=== PATIENT | female | born 1990 | race Caucasian/White ===

== ENCOUNTER 2018-12-29 13:40 | Inpatient (IN) ==
--- NOTE | 2018-12-29 14:39 | Emergency Department Note ---
ED Provider Note CHIEF COMPLAINT: Right wrist injury 5 days ago, increased swelling and bloody drainage today HISTORY OF PRESENT ILLNESS: Patient is a right-hand dominant 28-year-old female who presents the emergency department for redness, pain and swelling on her right wrist. 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 She states that she slipped and fell on her outstretched right arm behind her while working about 5 days ago. She states that it was painful and swollen, so she went to [facility] the following day and had x-rays performed which were negative. Patient states that she has wrapped it with an Chris wrap, applied ice, and alternated ibuprofen and Aleve, bu t the pain and swelling have become worse. She states that she noticed that it became more "fluid-filled" in the last couple of days, and this morning she states that she noticed bloody drainage from the swelling on the wrist. She states that she did have a small brenton or cut on that area from broken glass at work prior to the fall. The patient denies any fever, chills, nausea, vomiting or malaise. She rates her discomfort a 7/10. The patient denies any personal history of skin infections or abscesses. She does have history of contact with people with MRSA. Patient does admit to IV drug use, she abuses heroin. She went to rehab and has been clean times 2 weeks, but does admit that she has injected in this area, last was probably about 2 weeks ago. REVIEW OF SYSTEMS: Review of systems as per HPI. All other systems reviewed were negative. 10 systems reviewed. PMH: Electronic medical records are reviewed and summarized as above/below. See Problem List. SOCIAL HISTORY: Patient lives at home. Works as a business management manager. Smoker. Heroin abuse. PHYSICAL EXAM: Vital Signs: Reviewed Nurse's notes. CONSTITUTIONAL: Patient is a well-appearing 28-year-old female who is awake and alert and in no acute distress. Vital signs are stable and she is afebrile. HEART: Regular rate and rhythm. No murmur appreciated. LUNGS: Clear to auscultation. INTEGUMENTARY: Examination of the right wrist, dorsal radial aspect, note a large, fluctuant, tender area of soft tissue swelling with increased warmth and surrounding erythema. There is pointing, and bloody drainage noted. There is additional soft tissue swelling into the dorsum of the hand. There is no lymphangitic streaking proximally. MUSCULOSKELETAL: Swelling as noted above. Wrist is tender to palpation, she can flex and extend but it is painful. There is no pain at the base of the thumb. Finger range of motion is full. The right upper extremity is neurovascularly intact. EMERGENCY DEPARTMENT COURSE: The patient was seen and assessed as above. She has no old records at this facility for review. She presents to the emergency department for evaluation of a painful fluctuant swelling on the right wrist, in the setting of a history of IV drug use, and a fall about 5 days ago. IV lock was initiated. Laboratory studies were collected including CBC with differential, CMP, sed rate, CRP and blood cultures x2. X-rays of the right wrist were obtained. Patient was reviewed with attending physician. CT scan of the upper extremity with IV contrast was ordered. Patient was given vancomycin and Zosyn empirically. Patient's laboratory studies revealed a normal white count at 10,300. Sed rate elevated at 69. Chemistries are unremarkable. CRP elevated at 11. Lactic acid is normal. Blood cultures x2 are pending. Her urine hCG was positive. Positive urine test was discussed with the patient. She reports that she has an IUD in place. She had a menstrual period 1 week ago. She reports that she was last sexually active 7 or 8 weeks ago. Quantitative hCG is less than 1. X-ray of the right wrist noted soft tissue swelling, but no acute bony pathology. CT scan of the right forearm noted a 4 x 3 x 6 cm fluid collection in the lateral right wrist compatible with an abscess. There is associated tenosynovitis in the first and second extensor cart mittens, and superficial venous thrombus in the distal cephalic vein. There is no intramuscular fluid collection or deep tissue air. All laboratory and diagnostic imaging imaging studies were reviewed with Dr. Morales. I did speak with Dr. Aguilar orthopedic surgeon on-call regarding the patient and her ED workup. He asked for medical admission, with plans to take the patient to the operating room tomorrow. I was able to speak with Dr. Zimmerman with the [facility], and they have agreed to see the patient. Differential diagnoses included abscess, cellulitis, DVT, superficial thrombophlebitis, septic hematoma, necrotizing fasciitis, infectious tenosynovitis, osteomyelitis, among others. Impression & Plan Abscess of arm, right Past Med/Surg History Medical History IVDU (intravenous drug user) (Chronic) Heroin abuse (Chronic) History of pyloric stenosis (Resolved) Kidney stones (Chronic) Surgical History History of cystoscopy (Resolved) Social History Preferred Language: Occitan current occupational status: employed Feels Safe at Home: Yes Smoking Status: Current every day smoker Hx Substance Use: Yes Results & Data Vital Signs Vital Signs - 24 hr 12/29/18 13:47 Temperature 36.7 C Temperature Source Oral Sepsis Recent Fever Within 48 Hours No Sepsis New/Unexplained Change in Mental Status No Sepsis Action Taken by Nursing No Action Required Pulse Rate 75 Respiratory Rate 16 Blood Pressure 113/73 Blood Pressure Mean 86 Pulse Oximetry 99 Home Medications Current Medication List: was personally reviewed by me Laboratory Data Attestation: I reviewed the patient's lab results. Result diagrams: 12/29/18 14:46 12/29/18 14:46 Lab Results 12/29/18 12/29/18 12/29/18 Range/Units 14:46 14:46 14:46 WBC 10.34 (4.8-10.8) K/uL RBC 4.45 (4.2-5.4) M/uL Hgb 13.2 (12.0-16.0) g/dL Hct 39.6 (37-47) % MCV 89.0 (80-100) fL MCH 29.7 (25-34) pg MCHC 33.3 (32-36) g/dL RDW Std Deviation 44.9 (36.4-46.3) fL RDW Coeff of Harriet 13.7 (11.5-14.5) % Plt Count 273 (130-400) K/uL MPV 11.3 H (7.4-10.4) fL Immature Gran % (Auto) 0.3 % Neut % (Auto) 69.2 % Lymph % (Auto) 22.1 % [place] % (Auto) 4.9 % Eos % (Auto) 3.0 % Baso % (Auto) 0.5 % Immature Gran # (Auto) 0.03 H (0.00-0.02) K/uL Neut # (Auto) 7.16 H (1.4-6.5) K/uL Lymph # (Auto) 2.28 (1.2-3.4) K/uL [place] # (Auto) 0.51 (0.11-0.59) K/uL Eos # (Auto) 0.31 (0-0.5) K/uL Baso # (Auto) 0.05 (0-0.2) K/uL ESR 69 H (0-21) mm/hr Sodium 134 L (136-145) mmol/L Potassium 3.9 (3.5-5.1) mmol/L Chloride 102 (98-107) mmol/L Carbon Dioxide 27 (21-32) mmol/L Anion Gap 5.0 (3-11) BUN 13 (7-18) mg/dl Creatinine 0.71 (0.6-1.2) mg/dl Est Cr Clr Drug Dosing 121.1 ml/min Est GFR ( Amer) 136.2 Est GFR (Non-Af Amer) 117.6 BUN/Creatinine Ratio 18.4 (10-20) Glucose 81 (70-99) mg/dl POC Lactic Acid Jefferson (0.90-1.70) mmol/L Calcium 9.5 (8.5-10.1) mg/dl Total Bilirubin 0.5 (0.2-1) mg/dl AST 30 (15-37) U/L ALT 46 (12-78) U/L Alkaline Phosphatase 119 H (45-117) U/L C-Reactive Protein 11.40 H (0-0.29) mg/dl Total Protein 9.0 H (6.4-8.2) gm/dl Albumin 4.1 (3.4-5.0) gm/dl Globulin 4.9 H (2.5-4.0) gm/dl Albumin/Globulin Ratio 0.8 L (0.9-2) HCG, Qual (Negative) HCG, Quant mIU/ml 12/29/18 12/29/18 12/29/18 Range/Units 14:46 14:46 14:48 WBC (4.8-10.8) K/uL RBC (4.2-5.4) M/uL Hgb (12.0-16.0) g/dL Hct (37-47) % MCV (80-100) fL MCH (25-34) pg MCHC (32-36) g/dL RDW Std Deviation (36.4-46.3) fL RDW Coeff of Harriet (11.5-14.5) % Plt Count (130-400) K/uL MPV (7.4-10.4) fL Immature Gran % (Auto) % Neut % (Auto) % Lymph % (Auto) % [place] % (Auto) % Eos % (Auto) % Baso % (Auto) % Immature Gran # (Auto) (0.00-0.02) K/uL Neut # (Auto) (1.4-6.5) K/uL Lymph # (Auto) (1.2-3.4) K/uL [place] # (Auto) (0.11-0.59) K/uL Eos # (Auto) (0-0.5) K/uL Baso # (Auto) (0-0.2) K/uL ESR (0-21) mm/hr Sodium (136-145) mmol/L Potassium (3.5-5.1) mmol/L Chloride (98-107) mmol/L Carbon Dioxide (21-32) mmol/L Anion Gap (3-11) BUN (7-18) mg/dl Creatinine (0.6-1.2) mg/dl Est Cr Clr Drug Dosing ml/min Est GFR ( Amer) Est GFR (Non-Af Amer) BUN/Creatinine Ratio (10-20) Glucose (70-99) mg/dl POC Lactic Acid Jefferson 0.75 L (0.90-1.70) mmol/L Calcium (8.5-10.1) mg/dl Total Bilirubin (0.2-1) mg/dl AST (15-37) U/L ALT (12-78) U/L Alkaline Phosphatase (45-117) U/L C-Reactive Protein (0-0.29) mg/dl Total Protein (6.4-8.2) gm/dl Albumin (3.4-5.0) gm/dl Globulin (2.5-4.0) gm/dl Albumin/Globulin Ratio (0.9-2) HCG, Qual Positive (Negative) HCG, Quant < 1 mIU/ml Administered Medications Vancomycin HCl 1,750 mg/ (Sodium Chloride) 535 mls @ 200 mls/hr IV NOW ONE Stop: 12/29/18 17:43 Last Admin: 12/29/18 16:44 Dose: 200 mls/hr Documented by: [id number] Ioversol (Optiray 320 100ml) 70 ml IV ONCE PRN PRN Reason: Interaction Checking Stop: 01/02/19 16:01 Last Admin: 12/29/18 16:03 Dose: 70 ml Documented by: [id number] Discontinued Medications Piperacillin Sod/Tazobactam Sod (Zosyn) 4.5 gm in 120 mls @ 240 mls/hr IV NOW ONE Stop: 12/29/18 15:32 Last Infusion: 12/29/18 16:44 Dose: 0 mls/hr Documented by: [id number] Admin: 12/29/18 16:13 Dose: 240 mls/hr Documented by: [id number] Ketorolac Tromethamine (Toradol) 30 mg IV NOW STA Stop: 12/29/18 16:26 Last Admin: 12/29/18 16:44 Dose: 30 mg Documented by: [id number] Imaging Data Attestation: I personally reviewed and interpreted this imaging study as follows: Radiologist's Impression: CT forearm RT w con HISTORY: 28 years-old Female EVAL ABSCESS, necrotizing fasciitis acute pain and swelling of the right wrist with concern for necrotizing fasciitis COMPARISON: Right wrist radiographs of same day TECHNIQUE: Multiple axial CT images of the right forearm were obtained following the intravenous administration of 164 mL Optiray 320 IV contrast. A dose lowering technique was used consistent with the principals of DEANN.. FINDINGS: No acute fracture, dislocation or significant degenerative changes. Bone mineralization appears to be within normal limits. No opaque foreign body identified. There is moderate subcutaneous and deep tissue edema about the distal forearm, hand and wrist which is most pronounced dorsolaterally in the subcutaneous tissues. Peripherally enhancing fluid collection is noted about the lateral wrist which demonstrates mild multiloculation measuring 3.9 x 2.9 x 5.9 cm. Moderate associated tenosynovitis about the first and second extensor compartments. Additionally, there is thrombosis about distal cephalic vein within this distribution on image 106 series 4. No intramuscular fluid collection. No deep tissue air. IMPRESSION: 1. Peripherally enhancing subcutaneous fluid collection about the lateral wrist measures up to 3.9 x 2.9 x 5.9 cm compatible with abscess. Moderate associated cellulitis changes. 2. Superficial venous thrombosis about the distal cephalic vein. 3. Tenosynovitis about the first and second extensor compartments, likely infectious or inflammatory. 4. No acute fracture or dislocation. XR wrist RT min 3V routine CLINICAL HISTORY: ABSCESS R WRIST pain COMPARISON: None. DISCUSSION: The bones and joint spaces appear intact. There is no evidence of fracture, dislocation or bony disease. Considerable soft tissue edema dorsal and lateral to the wrist. No well-defined acute bony abnormality. IMPRESSION: No acute bony abnormality. Considerable soft tissue edema. Blood Pressure Blood Pressure Findings: Normal blood pressure Discharge Plan Visit Data Chief Complaint: Wrist Pain Stated Complaint: FALL, LT WRIST PAIN ED Provider: Eddy Morales ED Midlevel Provider: Stephen Riley Discharge Problem: Abscess of arm, right Patient Disposition: Being Evaluated by Hospitalist Forms Stand Alone Forms: [employer] Prescriptions Prescriptions: No Action No Known Home Medications RF: 0 Referrals Referrals: PCP,NO [Primary Care Provider] -
[2018-12-29] MEDS ORDERED: VANCOMYCIN HCL 1,750 MG in SODIUM CHLORIDE 0.9% 500 ML IV ONE (15:03)
[2018-12-29] MEDS ORDERED: PIPERACILLIN/TAZOBACTAM 4.5 GM/120 ML BAG IV ONE (15:03)
[2018-12-29] MEDS ORDERED: VANCOMYCIN CONSULT ACTIVE PRN (15:03)
[2018-12-29] MEDS ORDERED: PIPERACILL/TAZOBAC CONSULT ACTIVE PRN (15:03)
[2018-12-29 15:06] LABS: Basophils # (auto) 0.05 K/uL (0-0.2); Basophils % (auto) 0.5 %; Eosinophils # (auto) 0.31 K/uL (0-0.5); Hematocrit (blood only) 39.6 % (37-47); Hemoglobin 13.2 g/dL (12.0-16.0); Immature Granulocytes # (auto) 0.03 K/uL (0.00-0.02); Immature Granulocytes % (auto) 0.3 %; Lymphocytes # (auto) 2.28 K/uL (1.2-3.4); Lymphocytes % (auto) 22.1 %; Mean Corpuscular Hgb Conc 33.3 g/dL (32-36); Mean Platelet Volume 11.3 fL (7.4-10.4); Monocytes # (auto) 0.51 K/uL (0.11-0.59); Monocytes % (auto) 4.9 %; Neutrophils # (auto) 7.16 K/uL (1.4-6.5); Neutrophils % (auto) 69.2 %; Platelet Count 273 K/uL (130-400); RDW Coefficient of Variation 13.7 % (11.5-14.5); RDW Standard Deviation 44.9 fL (36.4-46.3); Red Blood Count 4.45 M/uL (4.2-5.4); White Blood Count 10.34 K/uL (4.8-10.8)
--- NOTE | 2018-12-29 15:10 | XRay Report ---
XR wrist RT min 3V routine CLINICAL HISTORY: ABSCESS R WRIST pain COMPARISON: None. DISCUSSION: The bones and joint spaces appear intact. There is no evidence of fracture, dislocation o r bony disease. Considerable soft tissue edema dorsal and lateral to the wrist. No well-defined acute bony abnormality. IMPRESSION: No acute bony abnormality. Considerable soft tissue edema. The above report was generated using voice recognition software. It may contain grammatical, syntax or spelling errors. Electronically signed by: Go Pederson M.D. 12/29/2018 3:08 PM
[2018-12-29 15:21] LABS: Albumin Level 4.1 gm/dl (3.4-5.0); BUN Creatinine Ratio 18.4 (10-20); Calcium 9.5 mg/dl (8.5-10.1); Creatinine Clr Calc Pharmacy 121.1 ml/min; Est GFR (African American) 136.2; Est GFR (Non-African American) 117.6; Potassium 3.9 mmol/L (3.5-5.1)
[2018-12-29 15:28] LABS: Albumin Globulin Ratio 0.8 (0.9-2); Bilirubin,Total 0.5 mg/dl (0.2-1); C Reactive Protein 11.4 mg/dl (0-0.29); Globulin 4.9 gm/dl (2.5-4.0)
[2018-12-29 15:36] LABS: Pregnancy Test, Serum Positive (Negative)
[2018-12-29] MEDS ORDERED: IOVERSOL 100ml IV PRN (16:02)
[2018-12-29] MEDS ORDERED: KETOROLAC 30 MG/ML VIAL IV STA (16:25)
--- NOTE | 2018-12-29 16:25 | CT Scan Report ---
CT forearm RT w con HISTORY: 28 years-old Female EVAL ABSCESS, necrotizing fasciitis acute pain and swelling of the righ t wrist with concern for necrotizing fasciitis COMPARISON: Right wrist radiographs of same day TECHNIQUE: Multiple axial CT images of the right forearm were obtained following the intravenous admi nistration of 164 mL Optiray 320 IV contrast. A dose lowering technique was used consistent with the principals of ALARA.. FINDINGS: No acute fracture, dislocation or significant degenerative changes. Bone mineralization appears to be within normal limits. No opaque foreign body identified. There is moderate subcutaneous and deep tissue edema about the distal forearm, hand and wrist which i s most pronounced dorsolaterally in the subcutaneous tissues. Peripherally enhancing fluid collection is noted about the lateral wrist which demonstrates mild multiloculation measuring 3.9 x 2.9 x 5.9 c m. Moderate associated tenosynovitis about the first and second extensor compartments. Additionally, there is thrombosis about distal cephalic vein within this distribution on image 106 series 4. No int ramuscular fluid collection. No deep tissue air. IMPRESSION: 1. Peripherally enhancing subcutaneous fluid collection about the lateral wrist measures up to 3.9 x 2.9 x 5.9 cm compatible with abscess. Moderate associated cellulitis changes. 2. Superficial venous thrombosis about the distal cephalic vein. 3. Tenosynovitis about the first and second extensor compartments, likely infectious or inflammatory. 4. No acute fracture or dislocation. The above report was generated using voice recognition software. It may contain grammatical, syntax o r spelling errors. Electronically signed by: Ganesh Reed M.D. 12/29/2018 4:24 PM
--- NOTE | 2018-12-29 17:41 | History & Physical Report ---
Date of Service December 29, 2018 Assessment & Plan (1) Abscess of right forearm: The abscess involving the superior medial aspect of right wrist The size is about 4 x 3 x [address] scan No evidence of osteomyelitis Culture from the wound and blood cultures were taken She was started with intravenous Zosyn and vancomycin Discussed with the orthopedic surgeon We will keep her n.p.o. after midnight for probable I&D tomorrow morning Present on Admission?: Yes (2) IVDU (intravenous drug user): Has been under rehab Used heroin last about 15 days ago (3) Heroin abuse: As above History of Present Illness Chief Complaint: Right wrist pain with swelling and redness-since Tuesday last Primary Care Provider: NO PCP She is a 28 years old female without significant past medical history except history of heroin abuse, remote history of pyloric stenosis and kidney stone into emergency room with increasing swelling and pain involving the right wrist. 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 She used heroine about 2 weeks ago. She mentioned that she has had a fall on Tuesday, mechanical fall and she ended to fall on her right wrist with some local injury to the medial aspect. She went to [facility] on Tuesday to make sure there is no fracture and there was none. She has been complaining of swelling since then and today she also complains to have throbbing pain off and on involving the medial aspect of right wrist. She denies any fever or chills and does not have any lump here to the body especially in the axillary area on the right side. She was noted to have a Braun abscess involving the superior medial aspect of right wrist with adjoining inflammation with swelling. She was afebrile in the emergency room and his white count was not elevated. She was started with intravenous Zosyn and vancomycin and Ortho was consulted. I discussed with Dr. Aguilar and she will be taken to or tomorrow for I&D Allergies Allergy/AdvReac Type Severity Reaction Status Date / Time No Known Allergies Allergy Unverified 12/29/18 14:15 Home Medications Home Medications Medication Instructions Recorded Confirmed Type No Known Home Medications 12/29/18 12/29/18 History Past Med/Surg History Medical History IVDU (intravenous drug user) (Chronic) Heroin abuse (Chronic) History of pyloric stenosis (Resolved) Kidney stones (Chronic) Surgical History History of cystoscopy (Resolved) Social History Preferred Language: Syriac current occupational status: employed Feels Safe at Home: Yes Smoking Status: Current every day smoker Hx Substance Use: Yes Review of Systems All systems reviewed & are unremarkable except as noted in HPI & below 4 x 3 x 6 fluid collection with tenderness and adjoining redness involving the right superior medial aspect of the wrist Physical Exam Vital Signs (Past 24 Hours): Last Vital Signs Temp 36.7 C 12/29/18 13:47 Pulse 75 12/29/18 13:47 Resp 16 12/29/18 13:47 BP 113/73 12/29/18 13:47 Pulse Ox 99 12/29/18 13:47 Physical Exam: No apparent distress at rest Constitutional: WD/WN, vitals as above Eyes: PERRL, conjunctivae normal, anicteric sclerae ENMT: external ear and nose normal, oropharynx normal Neck: trachea midline, no thyromegaly Respiratory: normal respiratory effort, lungs clear to auscultation Cardiovascular: Rate/Rhythm: regular rate and regular rhythm Heart Sounds: normal S1 and normal S2 Gastrointestinal (Abdomen): normal bowel sounds, soft, nontender, no hepatosplenomegaly Musculoskeletal: Extremities: + hand abnormality (Swelling involving the superior and medial aspect of right wrist with fluctuation no adenopathy) Right Skin: Trauma: + evidence of skin trauma (Involving the right wrist more medial and superior aspect with 4 x 3 x 6 cm swelling) and + abrasion Neurologic: PERRL, EOMI, accommodation nl, no face palsy, no dysarthria Results & Data Laboratory Results Short CBC 12/29/18 Range/Units 14:46 WBC 10.34 (4.8-10.8) K/uL Hgb 13.2 (12.0-16.0) g/dL Hct 39.6 (37-47) % Plt Count 273 (130-400) K/uL BMP 12/29/18 14:46 Sodium 134 L Potassium 3.9 Chloride 102 Carbon Dioxide 27 BUN 13 Creatinine 0.71 Glucose 81 Calcium 9.5 Liver Function 12/29/18 Range/Units 14:46 Total Bilirubin 0.5 (0.2-1) mg/dl AST 30 (15-37) U/L ALT 46 (12-78) U/L Alkaline Phosphatase 119 H (45-117) U/L Albumin 4.1 (3.4-5.0) gm/dl Diagnostic Findings CT of the right wrist:IMPRESSION: 1. Peripherally enhancing subcutaneous fluid collection about the lateral wrist measures up to 3.9 x 2.9 x 5.9 cm compatible with abscess. Moderate associated cellulitis changes. 2. Superficial venous thrombosis about the distal cephalic vein. 3. Tenosynovitis about the first and second extensor compartments, likely infectious or inflammatory. 4. No acute fracture or dislocation. Medications Administered Current Inpatient Medications Ioversol (Optiray 320 100ml) 70 ml IV ONCE PRN PRN Reason: Interaction Checking Stop: 01/02/19 16:01 Last Admin: 12/29/18 16:03 Dose: 70 ml Documented by: Ketorolac Tromethamine (Toradol) 15 mg IV Q6H PRN PRN Reason: Pain Stop: 01/03/19 17:30 Miscellaneous Information (Consult) 1 ea N/A UD PRN PRN Reason: Consult Stop: 01/28/19 15:02 Miscellaneous Information (Consult) 1 ea N/A UD PRN PRN Reason: Consult Stop: 01/28/19 15:02 Code Status & VTE Plan Code Status Full code VTE Prophylaxis Plan VTE Prophylaxis will be ordered: Yes
[2018-12-29] MEDS: KETOROLAC TROMETHAMINE 15 MG/ML VIAL IV PRN (22:02)
[2018-12-29] MEDS ORDERED: OXYCODONE/ACETAMINOPHEN 5mg/325mg TAB PO PRN (22:25)
[2018-12-29] MEDS: SODIUM CHLORIDE 0.9% 1000ML 1,000 ML IV SCH (22:35)
[2018-12-29] MEDS: PIPERACILLIN/TAZOBACTAM 3.375 GM in DEXTROSE 5% 100 ML IV SCH (23:57)
[2018-12-30] MEDS: NICOTINE 21 MG/24 HR TDSY TD SCH (05:10)
[2018-12-30] MEDS: PIPERACILLIN/TAZOBACTAM 3.375 GM in DEXTROSE 5% 100 ML IV SCH ×3 (05:59→22:51)
[2018-12-30 06:41] LABS: Basophils # (auto) 0.03 K/uL (0-0.2); Basophils % (auto) 0.3 %; Eosinophils # (auto) 0.54 K/uL (0-0.5); Eosinophils % (auto) 5.2 %; Hematocrit (blood only) 33.4 % (37-47); Hemoglobin 10.9 g/dL (12.0-16.0); Immature Granulocytes # (auto) 0.02 K/uL (0.00-0.02); Immature Granulocytes % (auto) 0.2 %; Lymphocytes # (auto) 2.92 K/uL (1.2-3.4); Mean Corpuscular Hgb Conc 32.6 g/dL (32-36); Mean Corpuscular Volume 88.8 fL (80-100); Mean Platelet Volume 11.4 fL (7.4-10.4); Monocytes # (auto) 0.73 K/uL (0.11-0.59); Neutrophils # (auto) 6.18 K/uL (1.4-6.5); Neutrophils % (auto) 59.3 %; Platelet Count 221 K/uL (130-400); RDW Coefficient of Variation 13.8 % (11.5-14.5); RDW Standard Deviation 44.9 fL (36.4-46.3); Red Blood Count 3.76 M/uL (4.2-5.4); White Blood Count 10.42 K/uL (4.8-10.8)
[2018-12-30 07:15] LABS: BUN Creatinine Ratio 18.5 (10-20); Calcium 8.5 mg/dl (8.5-10.1); Creatinine Clr Calc Pharmacy 114.7 ml/min; Est GFR (African American) 127.5; Potassium 4.2 mmol/L (3.5-5.1)
[2018-12-30] MEDS: KETOROLAC TROMETHAMINE 15 MG/ML VIAL IV PRN ×2 (07:43→21:15)
--- NOTE | 2018-12-30 08:13 | Orthopedic Consultation ---
Date of Consultation December 30, 2018 Assessment & Plan (1) Abscess of arm, right: -Right wrist and forearm abscess: CT scan demonstrates fluid collection about the lateral wrist measures up to 3.9 x 2.9 x 5.9 cm compatible with abscess. She has gross purulent drainage from fluid collection. Case discussed with Dr. Aguilar. Plan will be to take patient to OR this morning for I&D of her abscess. Continue IV antibiotics. Patient is NPO. Consent on chart to be signed. History of Present Illness Reason for Consultation: Right wrist/forearm abscess Attending Physician: Marry Helton DO History of Present Illness She is a 28 years old female without significant past medical history except history of heroin abuse presented to emergency room with increasing swelling and pain involving the right wrist. She used heroine about 2 weeks ago. States she was not having any problems until Tuesday when she sustained a mechanical fall. X-rays were obtained at an Urgent Care on Tuesday which were negative. She has been complaining of swelling since then and today she also complains to have throbbing pain off and on involving the medial aspect of right wrist. Swelling and pain started to worsen significantly and she came to ED. She denies any fever or chills no lymphadenopathy. She was afebrile in the emergency room and his white count was not elevated. She was started with intravenous Zosyn and vancomycin. Dressing changed this AM and she does have gross amount of purulent drainage from spontaneous drainage of the abscess. She is NPO. Allergies Allergy/AdvReac Type Severity Reaction Status Date / Time No Known Allergies Allergy Unverified 12/29/18 14:15 Home Medications Home Medications Medication Instructions Recorded Confirmed Type No Known Home Medications 12/29/18 12/29/18 History Patient History Medical History IVDU (intravenous drug user) (Chronic) Heroin abuse (Chronic) History of pyloric stenosis (Resolved) Kidney stones (Chronic) Surgical History History of cystoscopy (Resolved) Social History Preferred Language: Danish Communication Ability: Effective Beliefs That Will Affect Care: None Current Living Situation: Alone current occupational status: employed Other Information That Helps Us Care for You: No Feels Safe at Home: Yes Safety Concerns: Feels Safe At This Time Smoking Status: Current every day smoker Hx Alcohol Use: No Hx Substance Use: Yes Physical Exam Vital Signs (Past 24 Hours): Last Vital Signs Temp 37.3 C 12/30/18 07:48 Pulse 82 12/30/18 07:48 Resp 14 12/30/18 07:48 BP 112/63 12/30/18 07:48 Pulse Ox 95 12/30/18 07:48 Constitutional: well developed and well nourished Respiratory: normal respiratory effort Cardiovascular: Rate/Rhythm: regular rate and regular rhythm Musculoskeletal: Right wrist moderate to large fluid collection over radial aspect of wrist from base of thumb to distal forearm consistent with abscess. Moderate erythema, no streaking. Has spontaneous drainage of abscess with gross purulent drainage. Mild swelling dorsal aspect of hand. Sensation and n/v status intact. No pain at elbow. Fingers are mobile. Skin: no rashes, warm and dry
[2018-12-30] MEDS: VANCOMYCIN HCL 1,000 MG in SODIUM CHLORIDE 0.9% 250 ML IV SCH ×3 (08:21→18:15)
[2018-12-30] MEDS: SODIUM CHLORIDE 0.9% 1000ML 1,000 ML IV SCH ×2 (08:22→22:49)
[2018-12-30] MEDS ORDERED: LIDOCAINE HCL 2% 2 ML VIAL/AMP(20MG/ML) INFIL ONE (08:46)
[2018-12-30] MEDS ORDERED: fentaNYL citrate 100 MCG/2 ML VIAL ONE ×2 (08:46→09:49)
[2018-12-30] MEDS ORDERED: MIDAZOLAM HCL 1 MG/ML 2ML VIAL ONE (08:46)
[2018-12-30] MEDS ORDERED: PROPOFOL IV EMULSION 10 MG/ML 20 ML VIAL IV ONE (08:46)
[2018-12-30] MEDS ORDERED: ROCURONIUM BROMIDE 10 MG/ML 5 ML VIAL ONE (08:46)
[2018-12-30] MEDS ORDERED: KETAMINE HCL INJ 50 MG/ML 10 ML VIAL ONE (08:47)
[2018-12-30] MEDS ORDERED: DexMEDEtomidine HCL IV 100 MCG/ML VIAL ONE (08:55)
[2018-12-30] MEDS ORDERED: BACITRACIN INJ 50,000 UNIT VIAL ONE (09:01)
--- NOTE | 2018-12-30 09:31 | Anesthesiology Consultation ---
Date of Service December 30, 2018 Assessment & Plan Chart Review Chart Review: Acceptable Risk for Surgery Consults Requested none NPO Date Last Intake of Fluids: 12/29/18 Time Last Intake of Fluids: 23:59 Date Last Intake of Solids: 12/29/18 Time Last Intake of Solids: 23:59 History Surgery Operation Date: 12/30/18 09:00 Proposed Procedures p Incision and Drainage Extremity - Riaz Aguilar DO Height/Weight Height: 5 ft 8 in Weight: 65.2 kg Allergies Allergy/AdvReac Type Severity Reaction Status Date / Time No Known Allergies Allergy Unverified 12/29/18 14:15 Medications Home Medications Medication Instructions Recorded Confirmed Last Taken No Known Home Medications 12/29/18 12/29/18 Unknown Active Medications Generic Name Dose Route Start Last Admin Trade Name Freq PRN Reason Stop Dose Admin Sodium Chloride 1,000 mls @ 100 mls/hr 12/29/18 22:30 12/30/18 08:22 Nss 1000ml IV 01/28/19 22:29 100 mls/hr .Q10H MARIN Administration Piperacillin Sod/Tazobactam 115 mls @ 28.75 mls/hr 12/29/18 23:00 12/30/18 05:59 Sod 3.375 gm/ Dextrose IV 01/08/19 22:59 28.8 mls/hr Q8H MARIN Administration Protocol Vancomycin HCl 1,000 mg/ 270 mls @ 125 mls/hr 12/30/18 01:00 12/30/18 08:21 Sodium Chloride IV 01/09/19 00:59 125 mls/hr Q8H MARIN Administration Ioversol 70 ml 12/29/18 16:02 12/29/18 16:03 Optiray 320 100ml IV 01/02/19 16:01 70 ml ONCE PRN Administration Interaction Checking Ketorolac Tromethamine 15 mg 12/29/18 17:31 12/30/18 07:43 Toradol IV 01/03/19 17:30 15 mg Q6H PRN Administration Pain Nicotine 21 mg 12/30/18 05:00 12/30/18 05:10 Nicoderm Cq TD 01/29/19 04:59 21 mg QAM MARIN Administration Past Medical History Medical History IVDU (intravenous drug user) (Chronic) Heroin abuse (Chronic) History of pyloric stenosis (Resolved) Kidney stones (Chronic) Past Surgical History Surgical History History of cystoscopy (Resolved) Social History Smoking Status: Current every day smoker tobacco type: cigarettes Do You Dip or Chew Tobacco: No Hx Alcohol Use: No Hx Substance Use: Yes substance use type: former substance user Last Used Substance Other:: Weeks ago Physical Exam Vital Signs Last Vital Signs Temp 37.3 C 12/30/18 07:48 Pulse 82 12/30/18 07:48 Resp 14 12/30/18 07:48 BP 112/63 12/30/18 07:48 Pulse Ox 95 12/30/18 07:48 Testing Laboratory Results 12/30/18 06:17 12/30/18 06:17 HCG, Quant < 1 mIU/ml 12/29/18 14:46 12/29/18 14:46 HCG, Quant < 1
--- NOTE | 2018-12-30 09:44 | History & Physical Bridge Note ---
Date of Service December 30, 2018 History & Physical Bridge Note I have examined the patient, reviewed the History & Physical and in the interval since the performance of the History & Physical I have noted the following changes of clinical significance: no changes noted
[2018-12-30] MEDS ORDERED: fentaNYL citrate 100 MCG/2 ML VIAL IV PRN (09:45)
[2018-12-30] MEDS ORDERED: ePHEDrine sulfate 50 MG/ML AMP IV PRN (09:45)
[2018-12-30] MEDS ORDERED: HYDROmorphone INJ 2 MG/ML SYR/VIAL IV PRN (09:45)
[2018-12-30] MEDS ORDERED: ATROPINE SULFATE 0.1 MG/ML 10ML SYR IV PRN (09:45)
--- NOTE | 2018-12-30 10:31 | Post Operative Brief Note ---
Immediate Post Op Note v1 Date of Surgery December 30, 2018 Pre & Post Diagnosis Operation Date: 12/30/18 09:00 Pre-Op Diagnosis: Right wrist abscess with cellulitis Post-Op Diagnosis: Right wrist abscess with cellulitis, Fasciitis dorsal wrist, tenosynovitis EPL and EIP Procedure Operation Date: 12/30/18 09:00 Actual Procedures p Incision and Drainage Dorsal Right Wrist abscess, Debridement of fascia, tenosynovectomy and tenolysis extensor tendons(Right) - Riaz Aguilar DO Surgeon Riaz Aguilar DO Print Developer None Estimated Blood Loss 3 Findings Consistent with Post-Op Diagnosis Specimens Aerobic, anaerobic and gram stain Drains Other (iodoform gauze) Anesthesia Type General Complications none Disposition Accompanied Patient To Recovery: No Disposition: Recovery Room
--- NOTE | 2018-12-30 12:08 | Anesthesiology Progress Note ---
Date of Service December 30, 2018 Anesthesia Post Procedure Vital Signs Vital Signs: Temp Pulse Pulse Pulse Pulse Resp BP 12/30/18 11:47 74 16 12/30/18 11:20 36.8 C 67 16 12/30/18 11:05 36.9 C 68 16 12/30/18 10:55 61 16 12/30/18 10:45 61 16 12/30/18 10:35 36.9 C 16 12/30/18 07:48 37.3 C 82 14 12/29/18 23:33 36.9 C 85 12 12/29/18 19:15 36.9 C 88 16 12/29/18 18:57 78 20 111/62 12/29/18 13:47 36.7 C 75 16 113/73 BP Pulse Ox 12/30/18 11:47 114/74 97 12/30/18 11:20 113/70 98 12/30/18 11:05 108/62 100 12/30/18 10:55 110/62 100 12/30/18 10:45 114/63 100 12/30/18 10:35 103/54 L 100 12/30/18 07:48 112/63 95 12/29/18 23:33 102/62 97 12/29/18 19:15 102/64 99 12/29/18 18:57 98 12/29/18 13:47 99 Pain Intensity Right Hand: Pain Intensity: 8 Notes Mental Status: alert / awake / arousable and participated in evaluation Patient Amnestic to Procedure: Yes Nausea / Vomiting: adequately controlled Pain: adequately controlled Airway Patency, RR, SpO2: stable & adequate BP & HR: stable & adequate Hydration State: stable & adequate Anesthetic Complications: no major complications apparent
--- NOTE | 2018-12-30 15:07 | Hospitalist Progress Note ---
Date of Service December 30, 2018 Assessment & Plan (1) Abscess of right forearm: s/p I&D in OR today and recovering well. Wound cultures pending. Cont Vanc/Zosyn empirically pending results and clinical improvement. Ortho for packing instructions and wound care. (2) IVDU (intravenous drug user): Has been under rehab Used heroin last about 15 days ago Toradol, PRN Percocet (3) DVT prophylaxis: SCDs/ambulation Full Code Dispo-pending wound cultures and clinical improvement. Marry Helton DO [facility] Hospitalist Subjective 28 yo IVDU with abscess of R forearm s/p I&D in OR. Reports pain and using Toradol. Tolerating PO, afebrile. Denies numbness of hand Physical Exam Vital Signs (Past 24 Hours): Last Vital Signs Temp 36.8 C 12/30/18 14:42 Pulse 73 12/30/18 14:42 Resp 16 12/30/18 14:42 BP 103/65 12/30/18 14:42 Pulse Ox 95 12/30/18 14:42 CONSTITUTIONAL: WNWD, vitals as above, generally well-appearing EYES: normal conjuctivae, no scleral icterus ENT: MMM RESPIRATORY: clear to auscultation bilaterally, no crackles, rales or wheezes, normal respiratory effort CARDIOVASCULAR: regular rate and rhythm, S1 and 2 heard without murmurs, gallops or rubs, no JVD, no peripheral edema GASTROINTESTINAL: normal bowel sounds, soft, nontender, nondistended MUSCULOSKELETAL: strength 5/5 throughout, head is normocephalic and atraumatic. R forearm is in soft cast dressing that is clean and dry SKIN: warm and dry NEUROLOGIC: CN 2-12 grossly intact, no sensory deficit, normal cognition but looks under the influence of something-delayed fine motor skills and some ?slu rring in her speech PSYCHIATRIC: alert cooperative and oriented to person, place and time. ssly intact. LYMPHATIC: no LAD Results & Data Laboratory Results Short CBC 12/29/18 12/30/18 Range/Units 14:46 06:17 WBC 10.34 10.42 (4.8-10.8) K/uL Hgb 13.2 10.9 L (12.0-16.0) g/dL Hct 39.6 33.4 L (37-47) % Plt Count 273 221 (130-400) K/uL BMP 12/29/18 12/30/18 14:46 06:17 Sodium 134 L 138 Potassium 3.9 4.2 Chloride 102 107 Carbon Dioxide 27 25 BUN 13 14 Creatinine 0.71 0.75 Glucose 81 97 Calcium 9.5 8.5 Liver Function 12/29/18 Range/Units 14:46 Total Bilirubin 0.5 (0.2-1) mg/dl AST 30 (15-37) U/L ALT 46 (12-78) U/L Alkaline Phosphatase 119 H (45-117) U/L Albumin 4.1 (3.4-5.0) gm/dl Medications Administered Current Inpatient Medications Sodium Chloride (Nss 1000ml) 1,000 mls @ 100 mls/hr IV .Q10H [facility] Stop: 01/28/19 22:29 Last Admin: 12/30/18 08:22 Dose: 100 mls/hr Documented by: Piperacillin Sod/Tazobactam (Sod 3.375 gm/ Dextrose) 115 mls @ 28.75 mls/hr IV Q8H [facility]; Protocol Stop: 01/08/19 22:59 Last Admin: 12/30/18 14:44 Dose: 28.8 mls/hr Documented by: Vancomycin HCl 1,000 mg/ (Sodium Chloride) 270 mls @ 125 mls/hr IV Q8H [facility] Stop: 01/09/19 00:59 Last Infusion: 12/30/18 10:31 Dose: Infused Documented by: Ioversol (Optiray 320 100ml) 70 ml IV ONCE PRN PRN Reason: Interaction Checking Stop: 01/02/19 16:01 Last Admin: 12/29/18 16:03 Dose: 70 ml Documented by: Ketorolac Tromethamine (Toradol) 15 mg IV Q6H PRN PRN Reason: Pain Stop: 01/03/19 17:30 Last Admin: 12/30/18 07:43 Dose: 15 mg Documented by: Miscellaneous (Remove Nicoderm Patch) 1 ea N/A HS MARIN Stop: 01/29/19 20:59 Miscellaneous Information (Consult) 1 ea N/A UD PRN PRN Reason: Consult Stop: 01/28/19 15:02 Miscellaneous Information (Consult) 1 ea N/A UD PRN PRN Reason: Consult Stop: 01/28/19 15:02 Nicotine (Nicoderm Cq) 21 mg TD QAM MARIN Stop: 01/29/19 04:59 Last Admin: 12/30/18 05:10 Dose: 21 mg Documented by: Oxycodone/Acetaminophen (Percocet 5mg/325mg) 2 tab PO Q4H PRN PRN Reason: Pain Stop: 01/12/19 22:24
--- NOTE | 2018-12-30 15:08 | Operative Report ---
DATE OF OPERATION: 12/30/2018 PREOPERATIVE DIAGNOSIS: Right wrist abscess with cellulitis. POSTOPERATIVE DIAGNOSES: 1. Right wrist abscess with cellulitis. 2. Fasciitis of the dorsal wrist. 3. Tenosynovitis of the extensor pollicis longus and extensor indicis proprius. PROCEDURE: 1. Right wrist incision and drainage dorsal abscess. 2. Debridement of fascia of the wrist. 3. Tenosynovectomy and tenolysis of the extensor pollicis longus and the extensor indicis proprius. SURGEON: Dr. Aguilar. DONOR SERVICES TECHNICIAN: None. ANESTHESIA: General LMA. SPECIMENS: Aerobic, anaerobic, Gram stain and fascial specimen. DRAINS: 1/4 inch iodoform gauze. COMPLICATIONS: None. BLOOD LOSS: 3 mL. PERTINENT HISTORY: This is a 28-year-old female with history of IV drug use. The patient stated that she had stopped using and has completed rehab; however, several days ago, started noticing redness and swelling of the right dorsal wrist and then to the point where she noted skin color change and then coalescence of the larger mass. She presented to the Emergency Department, seen by the physician's instructional assistant. The patient was then admitted to the hospitalist service for IV antibiotics and orthopedic consultation. The patient was seen and examined and noted to have large dorsal abscess. CT scan and x-rays were reviewed noting a large dorsal abscess and she was then scheduled for surgery as indicated. All potential risks, benefits, complications, alternatives, rehab, potential for incomplete relief of symptoms, need for further surgery, DVT, PE, , persistent pain, swelling, scarring, weakness, neurovascular injury, wound complications, failure or loss of function of the hand, possible need for skin grafting or amputation was discussed with the patient. The patient decided to proceed with the procedure as indicated. DESCRIPTION OF PROCEDURE: The patient was taken to the operative suite, placed supine on the Operating Room table. After review of consent and identification of proper operative site, the patient was anesthetized, LMA was placed. Tourniquet was placed high on the right upper extremity over cast padding. Right upper extremity was then sterilely prepped and draped in the usual fashion, elevated and tourniquet was inflated to 250 mmHg. There was no exsanguination performed due to the nature of the infection. A wound necrosis noted with devitalization of the tissue with an open area of punctate purulent drainage just ulnar to the anatomic snuff box. The incision was made adjacent to the extensor pollicis longus on the ulnar aspect dorsal. The incision was deepened through subcutaneous tissue. Meticulous hemostasis was achieved with electrocautery. The area of compromised tissue was protected and retracted. The purulent abscess was then evacuated. Approximately 30 mL of pus was evacuated. There was noted to be devitalized and necrotic fat tissue and appeared to be some irritation of the fascia. Fascial biopsy was obtained as well as aerobic, anaerobic, Gram stain of the purulent debris. These were passed off as specimen. Next, the pulsatile lavage was then used to initially wash out the abscess pocket and there was noted to be tenosynovitis of the extensor indicis proprius as well as the extensor pollicis longus. Tenosynovectomy and tenolysis was then performed with a Metzenbaum scissor and a rongeur. Once this was completed, all devitalized tissue was removed. Approximately 3 liters of bacitracin and sterile saline was then used to lavage the abscess with a pulsed lavage. Once this was completed, top gloves and top sheet were changed and then a one quarter inch iodoform gauze drain was packed in the wound. The wound was closed loosely with interrupted 4-0 nylon sutures. A sterile compressive dressing was applied consisting of Xeroform gauze, sterile 4 x 4's, ABD pad and Webril overwrapped with a 4 inch Chris wrap. The tourniquet was released. The patient was awakened, taken to recovery in stable condition. I attest to the content of the Intraoperative Record and any orders documented therein. Any exception s are noted below.
[2018-12-30] MEDS ORDERED: Nursing to Pharmacy Communication ONE (19:32)
[2018-12-30] MEDS ORDERED: hydrOXYzine HCl 10 MG TAB PO STA (23:59)
[2018-12-31] MEDS ORDERED: VANCOMYCIN TROUGH ONE (00:30)
[2018-12-31] MEDS: VANCOMYCIN HCL 1,000 MG in SODIUM CHLORIDE 0.9% 250 ML IV SCH ×3 (00:34→18:40)
[2018-12-31] MEDS: PIPERACILLIN/TAZOBACTAM 3.375 GM in DEXTROSE 5% 100 ML IV SCH ×3 (06:08→22:32)
[2018-12-31 07:06] LABS: Creatinine Clr Calc Pharmacy 98.8 ml/min; Est GFR (African American) 106.6; Est GFR (Non-African American) 91.9
[2018-12-31 07:46] LABS: Hematocrit (blood only) 35.1 % (37-47); Hemoglobin 11.3 g/dL (12.0-16.0); Mean Corpuscular Hgb Conc 32.2 g/dL (32-36); Mean Corpuscular Volume 89.5 fL (80-100); Mean Platelet Volume 11.6 fL (7.4-10.4); Platelet Count 228 K/uL (130-400); RDW Standard Deviation 45.9 fL (36.4-46.3); Red Blood Count 3.92 M/uL (4.2-5.4); White Blood Count 12.97 K/uL (4.8-10.8)
--- NOTE | 2018-12-31 07:58 | Orthopedic Progress Note ---
Date of Service December 31, 2018 Assessment & Plan (1) Abscess of right forearm: POD#1 --1. Right wrist incision and drainage dorsal abscess. 2. Debridement of fascia of the wrist. 3. Tenosynovectomy and tenolysis of the extensor pollicis longus and the extensor indicis proprius. -Continue Iv antibiotics. Culture pending. Grams stain-Many WBCs Seen, Rare Gram Positive Bacilli. Will continue to monitor. -Daily dressing changes, advance packing tomorrow -Pain management -D/C planning-uncertain Subjective Patient seen resting comfortably in bed. Pain is controlled. No complaints at this time. Denies fever, chills, chest pain, sob, dizziness. Physical Exam Vital Signs (Past 24 Hours): Last Vital Signs Temp 36.6 C 12/31/18 07:15 Pulse 59 L 12/31/18 07:15 Resp 15 12/31/18 07:15 BP 110/71 12/31/18 07:15 Pulse Ox 96 12/31/18 07:15 Physical Exam: Dressing c/d/i. This was removed. Incision is well approximated. Mild to moderate drainage. About 2-3inc of packing was pulled. Erythehma radial aspect of wrist to base of thumb. No streaking. Mild swelling dorsal aspect of wrist.
[2018-12-31 08:19] LABS: BUN Creatinine Ratio 15.3 (10-20); Calcium 8.5 mg/dl (8.5-10.1); Creatinine Clr Calc Pharmacy 101.2 ml/min; Est GFR (African American) 109.6; Est GFR (Non-African American) 94.6; Potassium 4.3 mmol/L (3.5-5.1)
--- NOTE | 2018-12-31 09:03 | Hospitalist Progress Note ---
Date of Service December 31, 2018 Assessment & Plan (1) Abscess of right forearm: s/p I&D in OR, POD#2 and recovering well. Wound cultures pending. Cont Vanc/Zosyn empirically pending results and clinical improvement. Ortho for packing instructions and wound care. 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 (2) IVDU (intravenous drug user): Plans for rehab upcoming later this week. Mom is at bedside. Used heroin last about 15 days ago Toradol, PRN Percocet (3) DVT prophylaxis: SCDs/ambulation Full Code Dispo-pending wound cultures. Clincally improved today. Marry Helton DO [facility] Hospitalist Subjective 28-year-old female IV drug abuser status post I&D of right forearm abscess. Plans for rehab within the next week. Mom is at bedside with patient. Patient denies any pain that is uncontrolled. She reports not getting much sleep last night. We discussed discharge plans. Physical Exam Vital Signs (Past 24 Hours): Last Vital Signs Temp 36.6 C 12/31/18 07:15 Pulse 59 L 12/31/18 07:15 Resp 15 12/31/18 07:15 BP 110/71 12/31/18 07:15 Pulse Ox 96 12/31/18 07:15 CONSTITUTIONAL: WNWD, vitals as above, generally well-appearing EYES: normal conjuctivae, no scleral icterus ENT: MMM RESPIRATORY: clear to auscultation bilaterally, no crackles, rales or wheezes, normal respiratory effort CARDIOVASCULAR: regular rate and rhythm, S1 and 2 heard without murmurs, gallops or rubs, no JVD, no peripheral edema GASTROINTESTINAL: normal bowel sounds, soft, nontender, nondistended MUSCULOSKELETAL: strength 5/5 throughout, head is normocephalic and atraumatic. R forearm is in soft cast dressing that is clean and dry SKIN: warm and dry NEUROLOGIC: CN 2-12 grossly intact, no sensory deficit, no gross focal deficits. PSYCHIATRIC: alert cooperative and oriented to person, place and time. Results & Data Laboratory Results Short CBC 12/31/18 Range/Units 07:24 WBC 12.97 H (4.8-10.8) K/uL Hgb 11.3 L (12.0-16.0) g/dL Hct 35.1 L (37-47) % Plt Count 228 (130-400) K/uL BMP 12/31/18 12/31/18 05:37 07:24 Sodium 140 Potassium 4.3 Chloride 111 H Carbon Dioxide 23 BUN 13 Creatinine 0.87 0.85 Glucose 113 H Calcium 8.5 Medications Administered Current Inpatient Medications Piperacillin Sod/Tazobactam (Sod 3.375 gm/ Dextrose) 115 mls @ 28.75 mls/hr IV Q8H COUNTS INCLUDE 234 BEDS AT THE [facility]; Protocol Stop: 01/08/19 22:59 Last Admin: 12/31/18 06:08 Dose: 28.8 mls/hr Documented by: Vancomycin HCl 1,000 mg/ (Sodium Chloride) 270 mls @ 125 mls/hr IV Q8H COUNTS INCLUDE 234 BEDS AT THE [facility] Stop: 01/09/19 00:59 Last Infusion: 12/31/18 03:52 Dose: Infused Documented by: Ioversol (Optiray 320 100ml) 70 ml IV ONCE PRN PRN Reason: Interaction Checking Stop: 01/02/19 16:01 Last Admin: 12/29/18 16:03 Dose: 70 ml Documented by: Ketorolac Tromethamine (Toradol) 15 mg IV Q6H PRN PRN Reason: Pain Stop: 01/03/19 17:30 Last Admin: 12/30/18 21:15 Dose: 15 mg Documented by: Miscellaneous (Remove Nicoderm Patch) 1 ea N/A HS COUNTS INCLUDE 234 BEDS AT THE [facility] Stop: 01/29/19 20:59 Last Admin: 12/30/18 21:09 Dose: 1 ea Documented by: Miscellaneous Information (Consult) 1 ea N/A UD PRN PRN Reason: Consult Stop: 01/28/19 15:02 Miscellaneous Information (Consult) 1 ea N/A UD PRN PRN Reason: Consult Stop: 01/28/19 15:02 Nicotine (Nicoderm Cq) 21 mg TD QAM COUNTS INCLUDE 234 BEDS AT THE [facility] Stop: 01/29/19 04:59 Last Admin: 12/30/18 05:10 Dose: 21 mg Documented by: Oxycodone/Acetaminophen (Percocet 5mg/325mg) 2 tab PO Q4H PRN PRN Reason: Pain Stop: 01/12/19 22:24
[2018-12-31] MEDS: NICOTINE 21 MG/24 HR TDSY TD SCH (09:38)
[2018-12-31] MEDS: KETOROLAC TROMETHAMINE 15 MG/ML VIAL IV PRN ×2 (09:47→15:33)
[2018-12-31] MEDS: SODIUM CHLORIDE 0.9% 1000ML 1,000 ML IV SCH (10:50)
--- NOTE | 2018-12-31 12:29 | Anesthesiology Progress Note ---
Date of Service December 31, 2018 Anesthesia Post Procedure Vital Signs Vital Signs: Temp Pulse Pulse Resp BP Pulse Ox 12/31/18 07:15 36.6 C 59 L 15 110/71 96 12/31/18 03:36 36.6 C 46 L 14 120/76 97 12/30/18 23:28 36.7 C 53 L 14 119/77 98 12/30/18 14:42 36.8 C 73 16 103/65 95 12/30/18 13:20 75 16 103/65 95 Pain Intensity Right Hand: Pain Intensity: 6 Notes Mental Status: alert / awake / arousable and participated in evaluation Patient Amnestic to Procedure: Yes Nausea / Vomiting: adequately controlled Pain: adequately controlled Airway Patency, RR, SpO2: stable & adequate BP & HR: stable & adequate Hydration State: stable & adequate Anesthetic Complications: no major complications apparent and Pt Satisfied with anesthetic care
--- NOTE | 2018-12-31 15:59 | Pharmacy Report ---
Pharmacy Abx Initial Consult - Date of Service December 31, 2018 - Pharmacy Dosing Scope Date of Consult: 12/29/18 Consultation requested by: Dr. Zimmerman Pharmacy is consulted to initiate Zosyn and Vancomycin IV dosing therapy, order appropriate labs and adjust drug dose/frequency. - Subjective The patient is a 28 year old F admitted on 12/29/18 17:27. - Objective Height: 5 ft 8 in Weight: 65.2 kg Vital Signs (Past 12hrs): Vital Signs Temp Pulse Pulse Resp BP Pulse Ox 12/31/18 15:17 36.9 C 70 20 100/62 99 12/31/18 07:15 36.6 C 59 L 15 110/71 96 Lab Results (24hrs): Laboratory Tests (24 Hours) 12/31/18 12/31/18 12/31/18 07:24 07:24 05:37 WBC 12.97 H Creatinine 0.85 0.87 Est Cr Clr Drug Dosing 101.2 98.8 Vancomycin Trough 12/31/18 00:31 WBC Creatinine Est Cr Clr Drug Dosing Vancomycin Trough 18.8 Micro Results: 12/30/18 09:57 Gram Stain - Final Wrist,Right - Assessment & Plan Assessment 28 year old F presenting to the ED with increasing swelling and pain involving the right wrist. She had a fall last Tuesday and went to [facility] on Tuesday to make sure there was no fracture. She went to the OR on 12/30 for I&D. Plan Vancomycin and Zosyn for treatment of abscess on right wrist with cellulitis. Vancomycin IV * Estimated PK Parameters: Vd 0.7 L/kg, Jamari 0.087 hr-1, t1/2 8 hr * Loading dose: 1750 mg (27 mg/kg) * Maintenance dose: 1000 mg IV (15 mg/kg) every 8 hours * Goal trough level for abscess/cellulitis : 15 to 20 mcg/mL * Trough level collected on 12/31/18 at 0030 was 18.8 mcg/mL. Continue current dose of Vanc 1000mg Q8H * Trough level ordered for 01/01/19 at 0830 Piperacillin/tazobactam * 4.5 g bolus administered over 30 minutes, then 3.375 g IV extended infusion every 8 hours for CrCl greater than 20 mL/min Pharmacy will continue to follow and will adjust dose/frequency as necessary. Thank you.
[2018-12-31 16:16] LABS: INR 1.1 (0.9-1.1); Partial Thromboplastin Ratio 0.8; Partial Thromboplastin Time 22.3 Seconds (21.0-31.0); Prothrombin Time 11.2 Seconds (9.0-12.0)
[2018-12-31] MEDS: ENOXAPARIN INJ 40 MG/0.4 ML SYR SQ SCH (19:31)
[2018-12-31] MEDS: ACETAMINOPHEN 500 MG TAB PO PRN (21:21)
[2018-12-31] MEDS: OXYCODONE HCL SOLN 5 MG/5 ML UDC PO PRN (22:03)
[2019-01-01] MEDS: VANCOMYCIN HCL 1,000 MG in SODIUM CHLORIDE 0.9% 250 ML IV SCH ×4 (00:41→17:04)
[2019-01-01] MEDS: HYDROmorphone INJ 0.5 MG/0.5 ML SYR IV PRN ×2 (00:41→08:47)
[2019-01-01] MEDS: PIPERACILLIN/TAZOBACTAM 3.375 GM in DEXTROSE 5% 100 ML IV SCH ×3 (06:05→22:08)
[2019-01-01] MEDS ORDERED: VANCOMYCIN TROUGH ONE (08:30)
--- NOTE | 2019-01-01 08:46 | Orthopedic Progress Note ---
Date of Service January 01, 2019 Assessment & Plan (1) Abscess of right forearm: POD#2 --1. Right wrist incision and drainage dorsal abscess. 2. Debridement of fascia of the wrist. 3. Tenosynovectomy and tenolysis of the extensor pollicis longus and the extensor indicis proprius. -Continue Iv antibiotics. Culture pending. Grams stain-Many WBCs Seen, Rare Gram Positive Bacilli. Will continue to monitor. -Daily dressing changes while at [facility]. May leave dressing in place until follow up with us outpatient once she is discharge. -Pain management -D/C planning-uncertain -Awaiting plastic surgery consult. Will possibly need to resolve infection before any particular tx. Subjective Patient seen resting comfortably in bed. Pain is controlled. States it has improved today. Feels like she can feel the stitches pulling more today. No complaints at this time. Denies fever, chills, chest pain, sob, dizziness. Physical Exam Vital Signs (Past 24 Hours): Last Vital Signs Temp 36.7 C 01/01/19 07:53 Pulse 68 01/01/19 07:53 Resp 15 01/01/19 07:53 BP 110/62 01/01/19 07:53 Pulse Ox 97 01/01/19 07:53 Constitutional: WD/WN, vitals as above Musculoskeletal: Right hand: Erythema is minimal and most of that seems to be at the base of the thumb. Granulation tissue noted along the previous wound. No purulence noted today. Minimal serosanguinous drainage on the bandage. The rest of the packing was removed today.
[2019-01-01] MEDS: NICOTINE 21 MG/24 HR TDSY TD SCH (08:49)
[2019-01-01 09:18] LABS: Hematocrit (blood only) 34.6 % (37-47); Hemoglobin 11.1 g/dL (12.0-16.0); Mean Corpuscular Hgb Conc 32.1 g/dL (32-36); Mean Corpuscular Volume 89.9 fL (80-100); Mean Platelet Volume 11.3 fL (7.4-10.4); Platelet Count 211 K/uL (130-400); RDW Coefficient of Variation 14.1 % (11.5-14.5); RDW Standard Deviation 46.7 fL (36.4-46.3); Red Blood Count 3.85 M/uL (4.2-5.4); White Blood Count 10.27 K/uL (4.8-10.8)
[2019-01-01 09:36] LABS: BUN Creatinine Ratio 8.7 (10-20); Calcium 8.6 mg/dl (8.5-10.1); Creatinine Clr Calc Pharmacy 76.1 ml/min; Est GFR (African American) 77.7
--- NOTE | 2019-01-01 10:06 | Pharmacy Report ---
Pharmacy Abx Dose Short Note - Date of Service January 01, 2019 - Assessment & Plan Assessment 28 year old F presenting to the ED with increasing swelling and pain involving the right wrist. Blood cultures are no growth to date. S/p I&D - operative cultures preliminary positive for Gm+ bacilli. Plan Vancomycin * Trough level came back supratherapeutic today at ~25 mcg/ml (goal ~15-20 mcg/ml for cellulitis/+drainage) - likely due to rise in Scr today. Scr increased from 0.85 mg/dL to 1.13 mg/dL today. Previous level on 3/3 am had been therapeutic for vancomycin * Called nurse and had her not administer 0900 vancomycin dose due to supratherapeutic level this morning. She had not hung dose yet. * Will adjust vancomycin dosing to 1000 mg iv q 12 hrs to achieve a lower trough level * Estimated kinetics based upon level - t1/2~10 hrs, ke~0.077 hr-1, CrCl ~76 ml/min * Will continue to monitor renal function - consider rechecking trough in next 1-2 days Pharmacy will continue to follow and will adjust dose/frequency as necessary. Thank you.
--- NOTE | 2019-01-01 13:48 | Hospitalist Progress Note ---
Date of Service January 01, 2019 Assessment & Plan (1) Abscess of right forearm: s/p I&D in OR, recovering well post-operatively Wound cultures growing gram positive bacilli. Per Micro tech, no speciation until tomorrow. Cont Vanc/Zosyn empirically pending results; she is clinically improved. Ortho for packing instructions and wound care. 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 Plastic to see patient today. (2) IVDU (intravenous drug user): Plans for rehab upcoming later this week. Used heroin last two weeks ago Toradol, PRN Percocet, dilaudid given overnight but pain is improved so will stop this now. (3) DVT prophylaxis: SCDs/Lovenox/ambulate Full Code Dispo-pending wound cultures. Clinically improved and afebrile. Marry Helton DO [facility] Hospitalist Physical Exam Vital Signs (Past 24 Hours): Last Vital Signs Temp 36.7 C 01/01/19 07:53 Pulse 68 01/01/19 07:53 Resp 15 01/01/19 07:53 BP 110/62 01/01/19 07:53 Pulse Ox 97 01/01/19 07:53 CONSTITUTIONAL: WNWD, vitals as above, generally well-appearing EYES: normal conjuctivae, no scleral icterus ENT: MMM RESPIRATORY: clear to auscultation bilaterally, no crackles, rales or wheezes, normal respiratory effort CARDIOVASCULAR: regular rate and rhythm, S1 and 2 heard without murmurs, gallops or rubs, no JVD, no peripheral edema GASTROINTESTINAL: normal bowel sounds, soft, nontender, nondistended MUSCULOSKELETAL: strength 5/5 throughout, head is normocephalic and atraumatic. R forearm is in soft cast dressing that is clean and dry SKIN: warm and dry NEUROLOGIC: CN 2-12 grossly intact, no sensory deficit, no gross focal deficits. PSYCHIATRIC: alert cooperative and oriented to person, place and time. Results & Data Laboratory Results Short CBC 01/01/19 Range/Units 09:02 WBC 10.27 (4.8-10.8) K/uL Hgb 11.1 L (12.0-16.0) g/dL Hct 34.6 L (37-47) % Plt Count 211 (130-400) K/uL BMP 01/01/19 09:02 Sodium 141 Potassium 4.0 Chloride 111 H Carbon Dioxide 22 BUN 10 Creatinine 1.13 Glucose 85 Calcium 8.6 Medications Administered Current Inpatient Medications Acetaminophen (Tylenol) 1,000 mg PO Q6H PRN PRN Reason: Moderate Pain Stop: 01/30/19 21:12 Last Admin: 12/31/18 21:21 Dose: 1,000 mg Documented by: Enoxaparin Sodium (Lovenox) 40 mg SQ Q24H MARIN Stop: 01/30/19 17:59 Last Admin: 12/31/18 19:31 Dose: 40 mg Documented by: Hydromorphone HCl (Dilaudid) 0.5 mg IV Q4H PRN PRN Reason: Severe Pain Stop: 01/15/19 00:23 Last Admin: 01/01/19 08:47 Dose: 0.5 mg Documented by: Piperacillin Sod/Tazobactam (Sod 3.375 gm/ Dextrose) 115 mls @ 28.75 mls/hr IV Q8H [facility]; Protocol Stop: 01/08/19 22:59 Last Infusion: 01/01/19 10:18 Dose: Infused Documented by: Vancomycin HCl 1,000 mg/ (Sodium Chloride) 270 mls @ 125 mls/hr IV Q12H [facility] Stop: 01/08/19 15:59 Ioversol (Optiray 320 100ml) 70 ml IV ONCE PRN PRN Reason: Interaction Checking Stop: 01/02/19 16:01 Last Admin: 12/29/18 16:03 Dose: 70 ml Documented by: Miscellaneous (Remove Nicoderm Patch) 1 ea N/A HS MARIN Stop: 01/29/19 20:59 Last Admin: 12/31/18 21:18 Dose: 1 ea Documented by: Miscellaneous Information (Consult) 1 ea N/A UD PRN PRN Reason: Consult Stop: 01/28/19 15:02 Miscellaneous Information (Consult) 1 ea N/A UD PRN PRN Reason: Consult Stop: 01/28/19 15:02 Nicotine (Nicoderm Cq) 21 mg TD QAM MARIN Stop: 01/29/19 04:59 Last Admin: 01/01/19 08:49 Dose: 21 mg Documented by: Oxycodone HCl (Roxicodone) 5 mg PO Q6H PRN PRN Reason: Severe Pain Stop: 01/14/19 21:12 Last Admin: 12/31/18 22:03 Dose: 5 mg Documented by:
[2019-01-01] MEDS: ACETAMINOPHEN 500 MG TAB PO PRN (14:18)
[2019-01-01] MEDS: ENOXAPARIN INJ 40 MG/0.4 ML SYR SQ SCH (18:52)
[2019-01-01] MEDS: OXYCODONE HCL SOLN 5 MG/5 ML UDC PO PRN (18:58)
[2019-01-02] MEDS: VANCOMYCIN HCL 1,000 MG in SODIUM CHLORIDE 0.9% 250 ML IV SCH ×2 (04:20→15:22)
[2019-01-02] MEDS: PIPERACILLIN/TAZOBACTAM 3.375 GM in DEXTROSE 5% 100 ML IV SCH ×2 (06:00→15:22)
[2019-01-02] MEDS: OXYCODONE HCL SOLN 5 MG/5 ML UDC PO PRN (07:30)
[2019-01-02] MEDS: ACETAMINOPHEN 500 MG TAB PO PRN ×2 (07:30→13:21)
[2019-01-02 08:00] LABS: Creatinine Clr Calc Pharmacy 76.1 ml/min; Est GFR (African American) 77.7
[2019-01-02] MEDS: NICOTINE 21 MG/24 HR TDSY TD SCH (08:12)
--- NOTE | 2019-01-02 09:35 | Orthopedic Progress Note ---
Date of Service January 02, 2019 Assessment & Plan (1) Abscess of right forearm: POD#3 --1. Right wrist incision and drainage dorsal abscess. 2. Debridement of fascia of the wrist. 3. Tenosynovectomy and tenolysis of the extensor pollicis longus and the extensor indicis proprius. -Continue Iv antibiotics. Culture pending. Grams stain-Many WBCs Seen, Rare Gram Positive Bacilli. Waiting for sensitivity. -Daily dressing changes while at [facility]. Will consult Wound Care nurse for ideas on other dressings to use. Will need daily dressing changes. -Pain management -D/C planning-uncertain -Dr Vargas is out of town this week. Cancel Plastics consult. Pt will possibly need skin grafting down the road depending on healing. I spoke with Radha Abraham PA-C. They can plan to see pt in wound care center if patient is going to stay in town. Will discuss case with wound care team. Subjective POD 3 s/p I/D Right Wrist infection. Pt lying in bed. No complaints this AM. Hoping to go home soon. Pleasant and cooperative. Physical Exam Vital Signs (Past 24 Hours): Last Vital Signs Temp 37.3 C 01/02/19 07:30 Pulse 44 L 01/02/19 07:30 Resp 16 01/02/19 07:30 BP 118/74 01/02/19 07:30 Pulse Ox 98 01/02/19 07:30 Physical Exam: Dressing removed. Suture line intact. Large area of skin loss medial to suture line approx 5cm x 3cm. Scant yellow purulent area noted on one are of the wound. ROM of thumb without pain. Wrist with mild discomfort. No other complaints of pain currently. Redressed with adaptic, 4x4's, ABD's.
--- NOTE | 2019-01-02 10:50 | Infectious Disease Consult ---
Date of Consultation January 02, 2019 Assessment & Plan (1) Abscess of right forearm: Abscess of right forearm pain patient with active IV drug abuse with cultures growing gram-positive bacilli. For now, current combination of vancomycin and Zosyn will provide adequate coverage, would recommend changing to oral Augmentin 875 mg twice daily with food for at least several weeks upon discharge. Will follow. History of Present Illness Reason for Consultation: Wound culture results, antibiotic recommendations Attending Physician: Marry Helton DO History of Present Illness 28-year-old active heroin abuser was admitted to the hospital with several days of progressively worsening pain, swelling, and erythema of her right wrist. She had suffered a fall and was seen in urgent care center previously with negative x-rays. Was found to have extensive abscess in the wrist and is undergone operative debridement with findings of significant tendon involvement. Operative cultures so far only growing gram-positive bacilli. Currently being treated with vancomycin and Zosyn.Has been afebrile. Blood cultures were ne gative. Pain currently 3 out of 10 in intensity right wrist. Allergies Allergy/AdvReac Type Severity Reaction Status Date / Time ketorolac [From Toradol] AdvReac Swelling Verified 12/31/18 22:34 of the Eye Home Medications Home Medications Medication Instructions Recorded Confirmed Type No Known Home Medications 12/29/18 12/29/18 History Patient History Medical History IVDU (intravenous drug user) (Chronic) Heroin abuse (Chronic) History of pyloric stenosis (Resolved) Kidney stones (Chronic) Surgical History History of cystoscopy (Resolved) Social History Communication Ability: Effective Beliefs That Will Affect Care: None marital status: Single Current Living Situation: Alone current occupational status: employed Other Information That Helps Us Care for You: No Feels Safe at Home: Yes Safety Concerns: Feels Safe At This Time Smoking Status: Current every day smoker Hx Alcohol Use: No Hx Substance Use: Yes Review of Systems All systems were reviewed and are negative except as per HPI Physical Exam Vital Signs (Past 24 Hours): Last Vital Signs Temp 37.3 C 01/02/19 07:30 Pulse 44 L 01/02/19 07:30 Resp 16 01/02/19 07:30 BP 118/74 01/02/19 07:30 Pulse Ox 98 01/02/19 07:30 Constitutional: WD/WN, vitals as above comfortable; no acute distress Eyes: PERRL, conjunctivae normal, anicteric sclerae ENMT: external ear and nose normal, oropharynx normal Neck: trachea midline, no thyromegaly neck nontender Respiratory: normal respiratory effort, lungs clear to auscultation normal percussion; does not use accessory muscles Cardiovascular: Rate/Rhythm: regular rate and regular rhythm Heart Sounds: normal S1 and normal S2; no gallop, no murmur and no cardiac rub Vessels: normal peripheral pulses; no JVD Gastrointestinal (Abdomen): normal bowel sounds, soft, nontender, no hepatosplenomegaly Musculoskeletal: no cyanosis or clubbing, extremities motor strength 5/5 Spine: thoracic spine normal to inspection and lumbar spine normal to inspec tion; no cervical spinal tenderness Skin: normal turgor and + wound (Large open wound right wrist with exposed tendon, relatively clean base, hi); no rashes Neurologic: patellar DTR's 2+ bilat, sensation intact no focal motor deficits Psychiatric: A+Ox3, euthymic affect Orientation: cooperative Lymphatic: no cervical or axillary lymphadenopathy no inguinal lymphadenopathy Results & Data Laboratory Results BMP 01/02/19 07:06 Creatinine 1.13 Diagnostic Findings Microbiology 12/30/18 09:57 Wrist,Right Gram Stain - Final 12/30/18 09:57 Wrist,Right Aerobic and Anaerobic Culture - Preliminary Gram positive bacilli 12/29/18 14:48 Blood Blood Culture - Preliminary No growth to date. 12/29/18 14:45 Blood Blood Culture - Preliminary No growth to date. CT forearm RT w con HISTORY: 28 years-old Female EVAL ABSCESS, necrotizing fasciitis acute pain and swelling of the right wrist with concern for necrotizing fasciitis COMPARISON: Right wrist radiographs of same day TECHNIQUE: Multiple axial CT images of the right forearm were obtained following the intravenous administration of 164 mL Optiray 320 IV contrast. A dose lowering technique was used consistent with the principals of DEANN.. FINDINGS: No acute fracture, dislocation or significant degenerative changes. Bone mineralization appears to be within normal limits. No opaque foreign body identi fied. There is moderate subcutaneous and deep tissue edema about the distal forearm, hand and wrist which is most pronounced dorsolaterally in the subcutaneous tissues. Peripherally enhancing fluid collection is noted about the lateral wrist which demonstrates mild multiloculation measuring 3.9 x 2.9 x 5.9 cm. Moderate associated tenosynovitis about the first and second extensor compartments. Additionally, there is thrombosis about distal cephalic vein within this distribution on image 106 series 4. No intramuscular fluid collection. No deep tissue air. IMPRESSION: 1. Peripherally enhancing subcutaneous fluid collection about the lateral wrist measures up to 3.9 x 2.9 x 5.9 cm compatible with abscess. Moderate associated cellulitis changes. 2. Superficial venous thrombosis about the distal cephalic vein. 3. Tenosynovitis about the first and second extensor compartments, likely infectious or inflammatory. 4. No acute fracture or dislocation. The above report was generated using voice recognition software. It may contain grammatical, syntax or spelling errors. Electronically signed by: Ganesh Reed M.D. 12/29/2018 4:24 PM Dictated: 12/29/18 1605 Transcribed: 12/29/18 1619
[2019-01-02] MEDS ORDERED: OXYCODONE HCL SOLN 5 MG/5 ML UDC PO PRN (12:47)
[2019-01-02] MEDS ORDERED: IBUPROFEN 800 MG TAB PO STA (15:01)
[2019-01-02 15:37] VITALS: BP 149/87; PULSE 42; TEMP 98.2; O2SAT 100
--- NOTE | 2019-01-02 16:14 | Discharge Summary ---
Date of Service January 02, 2019 Admission HPI Per Admitting Provider She is a 28 years old female without significant past medical history except history of heroin abuse, remote history of pyloric stenosis and kidney stone into emergency room with increasing swelling and pain involving the right wrist. 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 She used heroine about 2 weeks ago. She mentioned that she has had a fall on Tuesday, mechanical fall and she ended to fall on her right wrist with some local injury to the medial aspect. She went to [facility] on Tuesday to make sure there is no fracture and there was none. She has been complaining of swelling since then and today she also complains to have throbbing pain off and on involving the medial aspect of right wrist. She denies any fever or chills and does not have any lump here to the body especially in the axillary area on the right side. She was noted to have a Braun abscess involving the superior medial aspect of right wrist with adjoining inflammation with swelling. She was afebrile in the emergency room and his white count was not elevated. She was started with intravenous Zosyn and vancomycin and Ortho was consulted. I discussed with Dr. Aguilar and she will be taken to or tomorrow for I&D Admission Exam Per Admitting Provider Temp 36.7 C 12/29/18 13:47 Pulse 75 12/29/18 13:47 Resp 16 12/29/18 13:47 BP 113/73 12/29/18 13:47 Pulse Ox 99 12/29/18 13:47 Physical Exam: No apparent distress at rest Constitutional: WD/WN, vitals as above Eyes: PERRL, conjunctivae normal, anicteric sclerae ENMT: external ear and nose normal, oropharynx normal Neck: trachea midline, no thyromegaly Respiratory: normal respiratory effort, lungs clear to auscultation Cardiovascular: Rate/Rhythm: regular rate and regular rhythm Heart Sounds: normal S1 and normal S2 Gastrointestinal (Abdomen): normal bowel sounds, soft, nontender, no hepatosplenomegaly Musculoskeletal: Extremities: + hand abnormality (Swelling involving the superior and medial aspect of right wrist with fluctuation no adenopathy) Right Skin: Trauma: + evidence of skin trauma (Involving the right wrist more medial and superior aspect with 4 x 3 x 6 cm swelling) and + abrasion Neurologic: PERRL, EOMI, accommodation nl, no face palsy, no dysarthria Principal Diagnosis 1. Right wrist abscess with cellulitis. 2. Fasciitis of the dorsal wrist. 3. Tenosynovitis of the extensor pollicis longus and extensor indicis proprius. PROCEDURE: 1. Right wrist incision and drainage dorsal abscess. 2. Debridement of fascia of the wrist. 3. Tenosynovectomy and tenolysis of the extensor pollicis longus and the extensor indicis proprius. Discharge Data Allergies Allergy/AdvReac Type Severity Reaction Status Date / Time ketorolac [From Toradol] AdvReac Swelling Verified 12/31/18 22:34 of the Eye Consultations 12/29/18 17:04 ED Decision to Admit Stat 12/29/18 19:24 Consult Orthopedic Surgery Routine 01/02/19 09:59 Consult Infectious Diseases Routine Procedures Performed Operation Date: 12/30/18 09:00 Actual Procedures p Incision and Drainage Dorsal Right Wrist, Debridement of fascia, tenolysis extensors(Right) - Riaz Aguilar DO Ordered Studies 12/29/18 15:00 CT forearm RT w con Stat Hospital Course (1) Abscess of right forearm: (2) IVDU (intravenous drug user): 28-year-old female presented to the emergency department for redness, pain and swelling of her right wrist. She fell on an outstretched right arm while working approximately 5 days ago. She also reported being around several broken glasses during the festivities of a local holiday. She reports going to [facility] and having x-rays which were negative. The swelling worsened and then she noted an opening and bloody drainage. In the ER, initial workup revealed a normal CBC and normal BMP. CT of the right forearm with contrast revealed an abscess around the wrist and a she was started on Zosyn and treated with Toradol for pain. She was admitted to the hospitalist service. Orthopedics was consulted and took her to the operating room for incision and drainage of her abscess. She subsequently underwent incision and drainage of the right wrist abscess with debridement of fascia and tenosynovectomy and tenolysis of the extensor tendons on the right. She recovered in the hospital for the next couple of days on broad-spectrum antibiotics pending intraoperative wound culture results. Blood cultures were negative. Infectious disease was consulted as cultures were growing gram-positive bacilli but were not speciated after a couple of days. She was empirically sent home on Augmentin 875 twice daily for 2 weeks with close wound care follow-up as well as Orthopedics follow- up. Orthopedics also recommended a Plastics consult as outpatient for consideration of skin graft. At time of discharge she was mentating and ambulating at baseline and tolerating p.o. She had been afebrile for greater than 48 hours and pain was controlled with oral pain medication. Physical exam was unremarkable aside from right wrist which had an extensive dressing intact that was clean and dry. She was sent home in stable condition. Ultimately wound cultures revealed Actinomyces turicensis, and there were no sensitivities. Total Time Total Time Spent Total Time Spent (In Minutes): 60 Total Time Includes: Examination of the Patient, Discharge Planning, Medication Reconciliation, Communication With Other Providers and Other (arrange follow-up) Discharge Plan Discharge Items Patient Disposition: Home - Home Health Services Reason For Visit: ABSCESS WITH CELLULITIS RIGHT WRIST Discharge Diagnosis: 1. Right wrist abscess with cellulitis. 2. Fasciitis of the dorsal wrist. 3. Tenosynovitis of the extensor pollicis longus and extensor indicis proprius. PROCEDURE: 1. Right wrist incision and drainage dorsal abscess. 2. Debridement of fascia of the wrist. 3. Tenosynovectomy and tenolysis of the extensor pollicis longus and the extensor indicis proprius. Condition: Good Discharge Goals: Decrease discomfort and Improve function Activity: As commented below Activity Comment: Gentle range of motion of the wrist as it allows. Lifting Comment: No heavy lifting with the right arm. Range of motion of the fingers regular Bathing Comment: Keep dressing clean and dry Driving/Machine Use Comment: Do not drive while taking narcotic pain medications Non-emergency contact: Primary Care Provider Call non-emergency contact if: you have any medication questions, your symptoms worsen, your pain is not controlled, your pain is worsening, your pain is unusual for you, your pain is concerning for you and you have a fever Follow-up/Referrals: Riaz Aguilar DO [Surgeon] - Diet: Regular Addtl Provider Instructions: No heavy lifting with the right arm. No work for two weeks. Keep the dressing clean and dry. Perform range of motion of your fingers regularly. Gentle wrist range of motion as it allows. No heavy lifting of the right arm. Please take all medications as instructed on discharge list below. You are being given IBUPROFEN 800mg to take as needed and ACETOMINOPHEN 1000mg to take as needed. It may be helpful for you to take these every 8 hours as discussed for a couple of days to stay ahead of the pain. Use OXYCODONE as needed for breakthrough pain. Adjust these medications as you continue to recover and the pain subsides. Please continue AUGMENTIN for at least two weeks. You may need a longer course but should be seen by the WOUND CARE provider to help determine if a longer course is needed. You should followup with [facility] within one week. They are located at: [address] [facility], [facility] [address] [place] [address] You should be seen in one week by Dr. Marcelo Aguilar at [facility]. You can contact them at to set up this appointment. You will need to be seen by Dr. Rosita Vargas at [facility]. Please call to set this up. You should be seen by her within one week of discharge, so Tuesday or Tuesday of next week. Please tell the floor coverer apprentice that you were in the hospital and were instructed on this. You have the following appointment set up with primary care: Date & Time 01/05/2019 11:20 AM Provider Kenn Liriano DO Department Family Practice [facility] [place] It was a pleasure taking care of you! Please call if you have any questions or problems. You can reach a [facility] hospitalist on duty at [facility] 24 hours a day by calling [phone]. Take care of yourself. Marry Helton DO [facility] Hospitalist Prescriptions: New acetaminophen [Pain Reliever] 500 mg Tablet 1,000 mg PO Q6H Qty: 30 RF: 0 oxycodone 10 mg tablet 10 mg PO Q6H PRN (Reason: severe pain) Qty: 10 RF: 0 amoxicillin-pot clavulanate [Augmentin] 875-125 mg tablet 1 tab PO BID 14 Days Qty: 28 RF: 0 ibuprofen 800 mg tablet 800 mg PO Q8H Qty: 30 RF: 0 No Action No Known Home Medications RF: 0 Stand-Alone Forms: My [facility], Opioid Pain Management, Work/School Release (Inpt) Discharge Orders: Discharge Order (Routine); Ordered 01/02/19 Ordered By: Marry Helton Admission Data Admit Date/Time: 12/29/18 17:27 Attending Provider: Marry Helton Admit Provider: Gildardo Zimmerman Primary Care Provider: PCP,NO Other Providers: Gildardo Zimmerman ; Riaz Aguilar ; Heron Campos Service: Surgical Services Other DC Date/Time DO NOT enter until pt leaves facility: 01/02/19 17:51
[2019-01-03] MEDS ORDERED: VANCOMYCIN TROUGH ONE (03:30)
== END 2019-01-02 17:51 | disposition home health service (06) | DRG 571 ==
LOC: ED 13:40 → 3W 17:27
DX: L02.413 Cutaneous abscess of right upper limb; F17.210 Nicotine dependence, cigarettes, uncomplicated; F11.10 Opioid abuse, uncomplicated; I96 Gangrene, not elsewhere classified; Y92.89 Other specified places as the place of occurrence of the external cause; W18.00XA Striking against unspecified object with subsequent fall, initial encounter; Z87.442 Personal history of urinary calculi; M72.8 Other fibroblastic disorders; M65.131 Other infective (teno)synovitis, right wrist